=== PATIENT | female | born 1930 | race Caucasian/White ===

== ENCOUNTER 2018-01-17 09:45 | Inpatient (IN) | payer OTHER ==
[~2018-01-17] VITALS: Ht 160 cm; Wt 67.0 kg
[~2018-01-17 09:45] MED LIST: HYDROCODONE-AP1 EAC6 PO; LOSARTAN-HCTZ1 EAC3 PO; METOPROLOL SUCC50 MG PO; OMEPRAZOLE40 MG PO; TRAMADOL 50 MG50 MG PO
[2018-01-17 09:52] VITALS: BP 186/67
[2018-01-17 10:48] LABS: ABSOLUTE BASOPHILS 0.1 thou/uL (0.0-0.2); ABSOLUTE LYMPHOCYTES 1.6 thou/uL (0.8-5.3); ABSOLUTE MONOCYTES 0.5 thou/uL (0.0-1.2); ABSOLUTE NEUTROPHILS 4.6 thou/uL (1.6-8.1); BASOPHILS 0.9 %; EOSINOPHILS 0.4 %; HEMATOCRIT 44.5 % (37.0-47.0); HEMOGLOBIN 14.9 gm/dL (12.0-15.0); LYMPHOCYTES 23.7 %; MCH 30.2 pg (26.0-34.0); MCHC 33.5 g/dL (28.0-37.0); MCV 90.2 fL (80.0-100.0); MONOCYTES 7.3 %; MPV 8.4 fl. (7.2-11.1); NUCLEATED RBCS 0 /100WBC; PLATELET COUNT* 310 thou/uL (150-400); POLYS 67.7 %; RBC 4.93 mil/uL (4.20-5.00); RDW-CV 13.3 % (10.5-14.5); WBC 6.8 thou/uL (4.0-11.0)
[2018-01-17 10:52] LABS: CALCIUM 9.5 mg/dL (8.5-10.1); CREATININE 0.8 mg/dL (0.6-1.3); POTASSIUM 3.6 mmol/L (3.5-5.1)
[2018-01-17 10:56] LABS: ALBUMIN 4.1 g/dL (3.4-5.0); TOTAL BILIRUBIN 0.9 mg/dL (<0.1-1.0); TOTAL PROTEIN 8.3 g/dL (6.4-8.2); URIC ACID* 5.5 mg/dL (2.6-7.2)
[2018-01-17 12:18] LABS: ESR (SEDRATE) 20 mm/hr (0-30)
[2018-01-17 12:33] LABS: URINE BLOOD NEGATIVE (Negative); URINE CLARITY CLEAR; URINE COLOR YELLOW; URINE GLUCOSE-RANDOM NEGATIVE (Negative); URINE KETONES 2+ (Negative); URINE LEUKOCYTES-REFLEX TRACE (Negative); URINE NITRITE-REFLEX NEGATIVE (Negative); URINE PROTEIN NEGATIVE (Negative); URINE UROBILINOGEN 0.2 E.U./dl (0.2-1.0)
[2018-01-17 12:41] LABS: BACTERIA-REFLEX 1-9 Few /HPF (None Seen); CASTS None Seen /LPF (None Seen); ICTOTEST (BILI CONFIRMATORY) Negative (Negative); SQUAMOUS 4-10 Moderate /LPF (0-3); URINE BILIRUBIN 1+ (Negative); URINE RBC None Seen /HPF (0-2); URINE WBC-REFLEX 0-5 Rare /HPF (0-5)
[2018-01-17 12:42] LABS: CRYSTALS None Seen /LPF (None Seen)
[2018-01-17 15:33] VITALS: BP 119/62
[2018-01-17 16:04] VITALS: BP 161/65
[2018-01-17 19:26] VITALS: BP 115/53
[2018-01-18 07:55] VITALS: BP 186/90
[2018-01-18 16:07] VITALS: BP 166/83
[2018-01-19 08:20] VITALS: BP 135/75
[2018-01-19 17:53] VITALS: BP 170/77
[2018-01-19 20:30] VITALS: BP 147/83
[2018-01-20 08:15] VITALS: BP 146/68
[2018-01-20 16:00] VITALS: BP 155/71
[2018-01-20 16:08] LABS: ANA INTERPRETATION Negative (Negative)
--- NOTE | 2018-01-20 19:14 | CON ---
[address] [address] CONSULTATION Name: LOR OLIVIER Room: [address] M.R.#: [id number] Admission: 01/17/18 Attend Phys: Justine Ghosh Discharge: Date of : 31 Report #: [id number] THIS REPORT FOR: //name// CC: Tomy Richardson DATE OF SERVICE: 01/18/2018 HISTORY OF PRESENT ILLNESS: This is an 87-year-old female patient who was evaluated by me for pain in the left lower extremity of about year and a half duration. She indicated it started spontaneously. She is not a very good historian. She was managed at [facility]. She said that they did an MRI of the foot and they diagnosed tendonitis there. They wanted to do the surgery, but she refused the surgery. Then, she started having pain in the left bach area and now she has pain some in the left thigh area. She does not know anything which makes the pain better or worse, but it is a severe pain. It started spontaneously without any trauma. She had an MRI of the lumbar spine. That did show mild abnormality, but that appeared to be on the right side. The patient has no symptom on the right side. REVIEW OF SYSTEMS: Indicate some symptoms suggestive of collagen vascular disorder, but not very prominent. She does have some fractures of the radius in the past. She had a gallbladder surgery. She had a question of Guillain-[place] syndrome in the past. She does not provide any good history. REVIEW OF SYSTEMS: A 14-point review of system was carried out, but otherwise looks unremarkable. She has no associated symptoms of eye, ENT, cardiac, respiratory, GI, , constitutional, dermatological, psychiatric, throat, allergic symptom associated with present symptomatology. PAST MEDICAL HISTORY: Positive for some other joint pain, but not very severe. FAMILY HISTORY: Negative for early age stroke. SOCIAL HISTORY: She does not drink alcohol on a regular basis. PHYSICAL EXAMINATION: Indicate the patient is alert, responsive. Her speech, concentration, fund of knowledge and memory is at her baseline. Cranial nerve examination 2-12 looks unremarkable. Strength, sensation, reflexes and tone looks symmetrical whenever she can give a good effort. There is no cerebellar sign. There is no meningeal sign. There is no carotid bruit. She is moderately-built individual who does not have any dysmorphic features of eyes, ears and face. Blood pressure is 190/89, respirations 16, pulse is 82, temperature is 98.7. Her pulses appear to be palpable. She has no edema, cyanosis or jaundice. Cardiac examinations appear unremarkable[place] [address] CONSULTATION Name: LOR OLIVIER Room: [address] IN ..#: [id number] Admission: 01/17/18 Attend Phys: Justine Ghosh Discharge: Date of : 31 Report #: [id number] difficulty or rhonchi was noticed. LABORATORY DATA: She did have MRI which were reviewed and that is described as well. Her white count is normal at 6.8. Sodium is slightly low at 134. IMPRESSION: The patient's symptom appeared to be secondary to musculoskeletal etiology than radiculopathy. I discussed the patient with Dr. Richardson and we will get an MRI in the location in the bach where the pain is maximum and see if it shows any etiology. We will do some basic collagen vascular workup, although her sed rate appeared to be okay. As an outpatient, she may need an EMG. RECOMMENDATIONS: 1. Await MRI. 2. As an outpatient, she may need an EMG. 3. Do some more blood workup to look for any collagen vascular disorder. Thank you very much for this referral. <ELECTRONICALLY SIGNED> By: Luis Coleman MD 01/20/18 [id number] Coleman MD /nt
[2018-01-20 23:31] VITALS: BP 176/64
[2018-01-21 07:50] VITALS: BP 199/78
[2018-01-21 15:48] VITALS: BP 199/78
[2018-01-21 16:12] VITALS: BP 151/55
[2018-01-21 20:00] VITALS: BP 187/77
[2018-01-22 05:15] LABS: HEMATOCRIT 40.3 % (37.0-47.0); HEMOGLOBIN 13.6 gm/dL (12.0-15.0); MCH 30.7 pg (26.0-34.0); MCHC 33.7 g/dL (28.0-37.0); MCV 91.2 fL (80.0-100.0); MPV 9.5 fl. (7.2-11.1); RBC 4.42 mil/uL (4.20-5.00); RDW-CV 13.3 % (10.5-14.5); WBC 6.1 thou/uL (4.0-11.0)
[2018-01-22 05:39] LABS: ALBUMIN 3.4 g/dL (3.4-5.0); CALCIUM 9.8 mg/dL (8.5-10.1); CREATININE 0.7 mg/dL (0.6-1.3); MAGNESIUM 1.7 mg/dL (1.8-2.4); POTASSIUM 3.2 mmol/L (3.5-5.1); TOTAL BILIRUBIN 0.7 mg/dL (<0.1-1.0); TOTAL PROTEIN 6.5 g/dL (6.4-8.2)
[2018-01-22 08:30] VITALS: BP 199/83
[2018-01-22] MEDS ORDERED: NORCO 5-325 TA1 EACH PO (13:19)
[2018-01-22] MEDS ORDERED: CEFUROXIME250 MG PO (13:21)
[2018-01-22] MEDS ORDERED: MOBIC7.5 MG PO (13:21)
[2018-01-22 13:27] VITALS: BP 199/78
[2018-01-22] MEDS ORDERED: REQUIP 0.25 M0.25 MG PO (14:24)
[2018-01-22 14:58] VITALS: BP 199/78
[2018-02-02] MEDS ORDERED: TRAMADOL 50 MG50 MG PO (13:21)
[2018-02-02] MEDS ORDERED: CEFUROXIME250 MG PO (13:22)
== END 2018-01-22 14:55 | disposition home health service (06) | DRG 554 ==
LOC: M.ERS 09:45 → M.3W 13:17 → M.TBA-ER 13:17 → M.3W 15:40
PROVIDERS: Family Medicine; Nurse Practitioner Family; Psychiatry & Neurology Neuromuscular Medicine; ADMIT Internal Medicine
DX: M17.12 Unilateral primary osteoarthritis, left knee (principal); N39.0 Urinary tract infection, site not specified; G61.0 Guillain-Barre syndrome; M87.88 Other osteonecrosis, other site; M51.16 Intervertebral disc disorders with radiculopathy, lumbar region; M47.816 Spondylosis without myelopathy or radiculopathy, lumbar region; I10 Essential (primary) hypertension; G89.29 Other chronic pain; E86.0 Dehydration; M81.0 Age-related osteoporosis without current pathological fracture; M54.9 Dorsalgia, unspecified; Z90.49 Acquired absence of other specified parts of digestive tract; Z88.8 Allergy status to other drugs, medicaments and biological substances; Z79.899 Other long term (current) drug therapy

== ENCOUNTER → 2018-02-02 | Outpatient (CLI) | payer OTHER ==
[~2018-02-02] MED LIST changes: +CEFUROXIME250 MG PO; +MOBIC7.5 MG PO; +NORCO 5-325 TA1 EACH PO; +OXYCODONE-ACET1 EACH PO; +REQUIP 0.25 M0.25 MG PO
--- NOTE | ~2018-02-02 | PAINCON ---
[address] [address] PAIN MANAGEMENT CONSULTATION Name: LOR OLIVIER [id number] Admission: 02/02/18 Attend Phys: Brett Jacobo MD Discharge: Date of : 31 Report #: [id number] THIS REPORT FOR: //name// CC: Tomy Jacobo DATE OF SERVICE: 02/02/2018 CHIEF COMPLAINT: Pain in the low back and down in my right leg. CHIEF COMPLAINT: Pain in the left leg with numbness and weakness down in my foot. FOLLOWUP HISTORY: The patient is an 87-year-old female who has been referred to the pain clinic for evaluation. The patient has noted for about the last 2 years, she has had some pain and discomfort, which has been problematic. It has become more difficult over the last few months. She has had some swelling in her left knee. States that she did have an injection in this area and noted some benefit from that. Pain has been so problematic. She has gone to the Emergency Room as a result. She has also gone to urgent care 4-5 times. She has tried tramadol and hydrocodone. These medications are slightly helpful, but do not help alleviate her pain. She has been told that she has a cyst behind her left knee. She denies any new trauma. She has used ice on her knee. She has also tried heat. It is significantly impacting her ability to engage in activities of daily living. Rates her pain as an 8-9 at this point. She has tried tramadol. States that the pain can "come on at any time." ALLERGIES: The patient states that she had cortisone in the past -- caused some swelling in her face. Did not have any respiratory problems. Noted primarily the redness in her face. MEDICATIONS: Ceftin 250 mg b.i.d., losartan/hydrochlorothiazide 100/25 mg, metoprolol 50 mg, tramadol 50 mg q. 4 hours p.r.n. 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 PAST SURGICAL HISTORY: Cholecystectomy 1977. SOCIAL HISTORY: She is retired. REVIEW OF SYSTEMS: Questionnaire generally good health, recent weight change, decreased appetite, fevers, night sweats, fatigue, hearing loss, ringing in the ears, loss of appetite, nausea, vomiting, frequent diarrhea, joint pain, joint stiffness, weakness of muscles and joint pain and cramps, muscle pain, difficulty walking, frequent recurring headaches, lightheadedness, depression, [place] [address] PAIN MANAGEMENT CONSULTATION Name: LOR OLIVIER Room: [facility]#: [id number] Admission: 02/02/18 Attend Phys: Brett Jacobo MD Discharge: Date of : 31 Report #: [id number] and insomnia. LABORATORY DATA: MRI of the lumbar spine dated 01/18/2018. 1. L3-L4, there is a digit. There is generalized disk bulge with moderate hypertrophic posterior facet changes and ligamentum hypertrophy. No significant central spinal stenosis. There is mild left-sided neural foraminal narrowing. At L4-L5, there is generalized disk bulge with a 5 mm right paracentral disk protrusion, which abuts the descending right L5 nerve root sleeve. There is mild right-sided neural foraminal narrowing. Severe posterior facet degenerative changes. 2. At L5-S1, no central spinal stenosis or neural foraminal narrowing. PAIN CLINIC ASSESSMENT/PQRS: 1. Osteoarthritis. The patient is complaining of some osteoarthritic changes in her left knee. 2. Rheumatoid arthritis. The patient is not being treated for rheumatoid arthritis. 3. Height 5 feet 3 inches, weight 144 pounds, BMI is 25.6. 4. Vital signs: Blood pressure 141/65, heart rate 47, respiratory rate 18, room air saturation is 98%, temperature 97.9. 5. Pain intensity score 8-9/10. 6. Fall risk. The patient has not fallen in the last 3 months. 7. Blood thinner. The patient is not on a blood thinning medication. 8. Hypertension. The patient is being treated for hypertension. 9. Opioid medications use greater than 6 weeks. The patient is not on a regular opioid medication, but has taken tramadol. 10. Risk assessment tool, low for opioid use. 11. Functional assessment tool, rates pain as a 60/70. 12. Recreational drug use. The patient denies use of recreational drugs. 13. Tobacco: The patient denies use of tobacco at this juncture. 14. Alcohol: The patient denies frequent use of alcoholic beverages. PHYSICAL EXAMINATION: GENERAL: The patient is a well-developed, well-nourished white female. Appears her stated age. She is alert and oriented x 3. Affect is appropriate. Speech is fluent. HEENT: Normocephalic, atraumatic. Extraocular eye muscles intact. Sclerae nonicteric. Mucous membranes are moist. NECK: Without adenopathy or JVD. HEART: Regular rate. S1, S2. LUNGS: Clear to auscultation. ABDOMEN: Nontender. Bowel sounds present. EXTREMITIES: Upper extremity muscle strength is judged to be 5/5 for the major muscle groups in the upper extremity. Lower extremity muscle strength is judged to be 4+ 5 for the left lower extremity. The patient gives way secondary to pain. She walks with an antalgic gait, uses a cane. The [place] [address] PAIN MANAGEMENT CONSULTATION Name: LOR OLIVIER Room: [facility]#: [id number] Admission: 02/02/18 Attend Phys: Brett Jacobo MD Discharge: Date of : 31 Report #: [id number] discomfort in the lateral portion of her leg. Note some swelling in the posterior portion of her knee. Has some numbness in the lateral portion of her leg in the L4-L5 distribution. IMPRESSION: 1. Lumbar radiculopathy, L4-L5 distribution with sensory changes. The patient is walking with a cane secondary to the pain. 2. Hypertension. 3. Chronic back pain. 4. History of Guillain-[place] syndrome, 2006. RECOMMENDATIONS: We discussed treatment options with the patient. We discussed the pathophysiology of her MRI. The patient does have an area of nerve root irritation and paracentral disk protrusion at L4-L5. Does have some pain and discomfort in the posterior portion of her left knee. States that there is some swelling in the left knee. Feels there is some puffiness around the left patellar area. We have discussed the epidural steroid injection reasoning. The patient elects to consider the procedure. She will return to the pain clinic at which time she will undergo an epidural steroid injection. Risk and benefits of the procedure again had been described to the patient. States that she did have some swelling as a result of use of cortisone. Did not have any anaphylactoid type symptomatology per her report. She will return at which time we will consider the possibility of an epidural steroid injection. We would like to thank you for letting us participate in her care. We hope she continues to improve. By: [id number]. Wilner Jacobo MD /nt
== END ==
LOC: M.PC 05:11
DX: M54.16 Radiculopathy, lumbar region (principal); G89.29 Other chronic pain; I10 Essential (primary) hypertension; Z86.69 Personal history of other diseases of the nervous system and sense organs

== ENCOUNTER → 2018-02-09 | Outpatient (CLI) | payer OTHER ==
[~2018-02-09] MED LIST changes: -OXYCODONE-ACET1 EACH PO
--- NOTE | ~2018-02-09 | PAINCON ---
[address] [address] PAIN MANAGEMENT CONSULTATION Name: LOR OLIVIER Room: [facility]#: [id number] Admission: 02/09/18 Attend Phys: Brett Jacobo MD Discharge: Date of : 31 Report #: [id number] THIS REPORT FOR: //name// CC: Tomy Jacobo DATE OF SERVICE: 02/09/2018 PRIMARY CARE PHYSICIAN: Dr. Tomy Swanson. CHIEF COMPLAINT: Pain in the left leg, which is severe. HISTORY: The patient is an 87-year-old female who has been seen in the pain clinic because of pain and discomfort, which is radiating down into her left leg. She describes her pain as quite severe as a 5/10. Notes that she has difficulty in activities of daily living because of this. Notes that the pain can "come on at any time." It does wax and wane. Over the past 2 years things have become more problematic. She has had some swelling in her left knee. Also, has had an injection in that area. She has been seen in the Emergency Room because of the significance of pain. She has tried some pain medications of tramadol, but they still felt significantly alleviate the pain in her leg. She has been told that she has a cyst behind the left knee. Has used ice on her knee. Has also tried heat. ALLERGIES: The patient states that she is allergic to CORTISONE, caused some redness of her face. No respiratory problems. MEDICATIONS: Ceftin 250 mg b.i.d., losartan/hydrochlorothiazide 100/25, metoprolol 50 mg, tramadol 50 mg q.4 hours. PAIN CLINIC ASSESSMENT: 1. Osteoarthritis. The patient is complaining of some osteoarthritic changes in her left knee. 2. Rheumatoid arthritis. The patient is not being treated for rheumatoid arthritis. 3. Height 5 feet 3 inches, weight 143 pounds, BMI is 25.4. 4. Vital signs: Blood pressure 151/82, heart rate 71, respiratory rate 16, room air saturation 95%, temperature 98.1. 5. Pain intensity 08/04. 6. Fall risk. The patient has not fallen in the last 3 months. 7. Blood thinner. The patient is not on a blood thinning medication. 8. Hypertension. The patient is being treated for hypertension. 9. Opioid medications greater than 6 weeks. The patient is using tramadol. 10. Risk assessment too low for opioid use. 11. Functional assessment tool rate 60/70. 12. Recreational drug use. The patient [place] [address] PAIN MANAGEMENT CONSULTATION Name: LOR OLIVIER Room: [facility]#: [id number] Admission: 02/09/18 Attend Phys: Brett Jacobo MD Discharge: Date of : 31 Report #: [id number] 13. Tobacco: The patient denies use of tobacco. 14. Alcohol: The patient denies frequent use of alcoholic beverages. PHYSICAL EXAMINATION: GENERAL: The patient is a well-developed, well-nourished white female. Appears her stated age. She is alert and oriented x 3. Her affect is appropriate. Speech is fluent. Family members present is male. HEENT: Normocephalic, atraumatic. Extraocular eye muscles intact. Sclerae nonicteric. Mucous membranes are moist. NECK: Without adenopathy or JVD. HEART: Regular rate. S1, S2. LUNGS: Clear to auscultation. ABDOMEN: Nontender. Bowel sounds present. EXTREMITIES: Upper extremity muscle strength is judged to be 5-/5 for the major muscle groups in the upper extremity. Lower extremity muscle strength is judged to be 4+/5 for the lower extremities. The patient walks with an antalgic gait. She uses her cane. Complains of pain in the left posterior portion of her left leg in the L4-L5 distribution. The patient perceives some swelling in the posterior portion of her knee. Hard to discern a significant swelling at this juncture. IMPRESSION: 1. Lumbar radiculopathy distribution with sensory changes. 2. The patient walks with a cane secondary to pain. 3. Hypertension. 4. History of Pereyra cyst. 5. Hypertension. 6. Chronic back pain. 7. History of Guillain-[place] syndrome, 2006. RECOMMENDATIONS: We discussed treatment options with the patient. Risks and benefits of an epidural steroid injection were discussed. Possible complications of the procedure were reviewed. They could include but are not limited to infection, increased muscle soreness, headache, bleeding, worsening of pain, no improvement in pain, paralysis. The patient elects to proceed. PROCEDURE NOTE: The patient was taken to the procedure area. She was assisted in getting on the examination table. She was placed in the prone position. A pillow was placed under her abdomen to bolster improve positioning. Her back was sterilely prepped with a Betadine solution. At the L4-L5 interspace, 0.25% bupivacaine was infiltrated. A 17-gauge Tuohy with loss of resistance technique was used to gain access to the epidural space. There was no CSF, heme or paresthesia. A total of 80 mg Depo-Medrol, 40 mg triamcinolone and 2 mL of 0.25% bupivacaine was injected. The patient tolerated the procedure well. She remained in the Pain Clinic for an appropriate amount of time. A total of 16 seconds fluoroscopy time was used. The patient [place] [address] PAIN MANAGEMENT CONSULTATION Name: LOR OLIVIER Room: [facility]#: [id number] Admission: 02/09/18 Attend Phys: Brett Jacobo MD Discharge: Date of : 31 Report #: [id number] in the near future. We would like to thank you for letting us participate in her care. We hope she continues to improve. By: [id number]. Wilner Jacobo MD /MANJU
== END | disposition home or self-care (01) ==
LOC: M.PC 05:41
DX: M54.16 Radiculopathy, lumbar region (principal); G89.29 Other chronic pain; I10 Essential (primary) hypertension; Z87.39 Personal history of other diseases of the musculoskeletal system and connective tissue; Z86.69 Personal history of other diseases of the nervous system and sense organs; Z79.899 Other long term (current) drug therapy; Z88.8 Allergy status to other drugs, medicaments and biological substances; Z79.891 Long term (current) use of opiate analgesic; Z87.440 Personal history of urinary (tract) infections

== ENCOUNTER → 2018-02-21 | Outpatient (CLI) | payer OTHER ==
[~2018-02-21] MED LIST changes: +OXYCODONE-ACET1 EACH PO
--- NOTE | ~2018-02-21 | PAINCON ---
[address] [address] PAIN MANAGEMENT CONSULTATION Name: LOR OLIVIER Room: [facility]#: [id number] Admission: 02/21/18 Attend Phys: Brett Jacobo MD Discharge: Date of : 31 Report #: [id number] THIS REPORT FOR: //name// CC: Tomy Jacobo DATE OF SERVICE: 02/21/2018 CHIEF COMPLAINT: Here for renewal of medication. FOLLOWUP HISTORY: The patient is an 87-year-old female who has been seen in the pain clinic because of chronic pain radiating down into her left leg. She has undergone epidural steroid injections. She notes that those have been beneficial. At this juncture, she continues to have pain, which is quite problematic. She rates it at a 5/10. It involves her left leg. Noticed about 4 days of pain resolution, then noted on reoccurrence of pain. Since that time, her pain has been more problematic. As you may recall, she is hospitalized because of this. She states that she has been evaluated for possibility of a blood clot. States that she has been told of the possibility that she has a cyst "Pereyra's" behind her knee. The patient has found that tramadol is helpful, but only works for a short amount of time. She did not have any significant swelling with the epidural steroid injection. She does complain of some redness of her face in the past. ALLERGIES: THE PATIENT STATES THAT SHE HAS AN ALLERGIC REACTION TO CORTISONE WHICH CAUSED SOME REDNESS IN HER FACE WITHOUT RESPIRATORY PROBLEMS -- THE PATIENT DID NOT EXPERIENCE ANY REAL PROBLEMS WITH THE DEPO-MEDROL INJECTIONS, WHICH SHE RECEIVED AT HER LAST VISIT. MEDICATIONS: Ceftin 250 mg b.i.d., losartan/hydrochlorothiazide 100/25, metoprolol 50 mg, tramadol 50 mg every 4 hours. PAIN CLINIC ASSESSMENT/OSTEOARTHRITIS: 1. The patient has some osteoarthritic changes in her knee, but is not being treated for rheumatoid arthritis. 2. Height 5 feet 3 inches, weight 141 pounds, BMI is 25. 3. Vital signs: Blood pressure 146/86, heart rate 61, respiratory rate 18, room air saturation 93%, temperature 98.4. 4. Pain intensity 10. 5. Fall risk. The patient has not fallen in the last 3 months. 6. Blood thinner. The patient is not on a blood thinning medication. 7. Hypertension. The patient is being treated for hypertension. 8. Opioid therapy greater than 6 weeks. The patient is using tramadol medication. 9. Risk assessment for opioid low. 10. Functional assessment tool 60/70. [place] [address] PAIN MANAGEMENT CONSULTATION Name: LOR OLIVIER Room: [facility]#: [id number] Admission: 02/21/18 Attend Phys: Brett Jacobo MD Discharge: Date of : 31 Report #: [id number] 11. Recreational drug use. The patient denies use of recreational drugs. 12. Tobacco: The patient denies use of tobacco. 13. Alcohol: The patient denies frequent use of alcoholic beverages. PHYSICAL EXAMINATION: GENERAL: The patient is a well-developed, well-nourished white female. Appears her stated age. She is alert and oriented x3. Affect is appropriate. Speech is fluent. Family member, her daughter is present. HEAD, EYES, EARS, NOSE, AND THROAT: Normocephalic, atraumatic. Extraocular eye muscles intact. Sclerae nonicteric. Mucous membranes are moist. NECK: Without adenopathy or JVD. HEART: Regular rate. S1, S2. LUNGS: Clear to auscultation. ABDOMEN: Nontender. Bowel sounds present. EXTREMITIES: Upper extremity muscle strength 5- for the major muscle groups in the upper extremity. Lower extremity, the patient has some pain and discomfort in the lower extremities, particularly the left area. Strength 4+/5 in lower extremity. The patient has walks with an antalgic gait. Uses her cane. Complains of some pain and discomfort in the posterior portion of her leg. I cannot really appreciate a bulging, which would be consistent with a symptomatic Pereyra cyst. She complains of some pain radiates from her leg down from the knee down and there is no significant swelling in the left side versus the right side. IMPRESSION: 1. Lumbar radicular pain with sensory changes. 2. Chronic pain, which has been recalcitrant to current medical regimen. 3. Hypertension. 4. History of Pereyra cyst per the patient's report. 5. Hypertension. 6. Chronic back pain. 7. History of Guillain-[place] syndrome. RECOMMENDATIONS: We discussed treatment options with the patient. At this juncture, we will have the patient take a more powerful/potent analgesics. The patient will try hydrocodone 5 mg 1 p.o. q.i.d. p.r.n. pain. A total of 75 tablets have been written. The patient's pain is somewhat of an enigma. Possibility of an epidural injection in the future still present. We would like to thank you for letting us to participate in her care. We hope she continues to improve. By: [id number]. MD DEJUAN Parker
== END ==
LOC: M.PC 04:56
DX: M54.16 Radiculopathy, lumbar region (principal); G89.29 Other chronic pain; M71.22 Synovial cyst of popliteal space [Baker], left knee; I10 Essential (primary) hypertension; Z86.69 Personal history of other diseases of the nervous system and sense organs; Z79.899 Other long term (current) drug therapy

== ENCOUNTER → 2018-03-14 | Outpatient (CLI) | payer OTHER | END | disposition home or self-care (01) | LOC: M.PC 04:42 | DX: M54.16 Radiculopathy, lumbar region (principal); M54.5 Low back pain; Z88.8 Allergy status to other drugs, medicaments and biological substances; Z79.899 Other long term (current) drug therapy ==

== ENCOUNTER → 2018-04-20 | Outpatient (CLI) | payer OTHER ==
--- NOTE | ~2018-04-20 | PAINCON ---
[address] [address] PAIN MANAGEMENT CONSULTATION Name: LOR OLIVIER [id number] Admission: 04/20/18 Attend Phys: Brett Jacobo MD Discharge: Date of : 31 Report #: [id number] THIS REPORT FOR: //name// CC: Tomy Jacobo DATE OF SERVICE: 04/20/2018 CHIEF COMPLAINT: Pain has been going pretty well, but then it started up. I am having trouble sleeping at night because of the pain down into my leg on the right side. HISTORY: The patient is an 87-year-old female who has been followed in the pain clinic. As you recall, she suffers from pain involving her left leg. She has been experiencing pain in the L4-L5 dermatomal distribution. She has undergone epidural steroid injections and gleaned benefits from these. She is doing reasonably well, but noted a recurrence of pain and discomfort, which is quite problematic. She is having difficulty sleeping because of the pain. Radiates down into her ankle and below the knee on the left side. States that she is able to sleep, but oftentimes awakened at 3:00 a.m. in the morning because of the pain. She has been unable to return to sleep. She has had no complication from the last injections. Did use oxycodone tablets in the past, found that they were beneficial. When her pain recurred a week or so ago, she did not have any oxycodone medication. Notes that her pain was quite severe. ALLERGIES: The patient states she has some allergic reaction to cortisone. Has noted some redness in her face. The patient has had injections in the epidural space with Depo-Medrol and triamcinolone without any adverse reactions. PAIN CLINIC ASSESSMENT/PQRS: 1. The patient is being treated for osteoarthritic changes in her knee. She is not being treated for rheumatoid arthritis. 2. Height 5 feet 3 inches, weight 141 pounds, BMI is 25. 3. Vital signs: Blood pressure 147/67, heart rate 58, respiratory rate 16, room air saturation 98%, temperature 98.1. 4. Pain intensity can rise to 5/10. 5. Fall risk. The patient has not fallen in the last 3 months. 6. Blood thinner. The patient is not on a blood thinning medication. 7. Hypertension. The patient is being treated for hypertension. 8. Opiate greater than 6 weeks. The patient has been using tramadol, found that the oxycodone was more efficacious. 9. Functional assessment tool 60/70. 10. Recreational drug use. The patient denies use of recreational drugs. 11. Tobacco: The patient denies use of tobacco. 12. Alcohol: The patient [place] [address] PAIN MANAGEMENT CONSULTATION Name: LOR OLIVIER Room: [facility]#: [id number] Admission: 04/20/18 Attend Phys: Brett Jacobo MD Discharge: Date of : 31 Report #: [id number] PHYSICAL EXAMINATION: GENERAL: The patient is a well-developed, well-nourished white female, appears her stated age. She is alert and oriented x 3. Her daughter is present. HEENT: Normocephalic, atraumatic. Extraocular eye muscles intact. Sclerae nonicteric. Mucous membranes are moist. NECK: Without adenopathy or JVD. HEART: Regular rate. S1, S2. LUNGS: Clear to auscultation without rhonchi or rales. ABDOMEN: Nontender. Bowel sounds present. EXTREMITIES: Upper extremity muscle strength is judged to be 5-/5 for the major muscle groups. The patient has some pain and discomfort, which is radiating down into her left leg in the L4-L5 dermatomal distribution. Muscle strength in this area is 4+/5. The patient walks using an antalgic gait. Does use a cane. Has pain in the left area below the knee and down to the dorsum ____ and side of her foot in the L4-L5 distribution. IMPRESSION: 1. Lumbar radicular pain in the L4-L5 distribution with sensory changes. 2. Chronic pain that has been recalcitrant to medical management. 3. Hypertension. 4. 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 5. Hypertension. 6. Chronic back pain. 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 RECOMMENDATIONS: We discussed treatment options with the patient and her daughter. Risks and benefits of an epidural steroid injection were again discussed. Possible complications of the procedure were reviewed. They include but are not limited to infection, worsening pain, no improvement in pain, nerve trauma with paralysis. The patient elects to proceed. PROCEDURE NOTE: The patient was assisted in getting on the examination table. Her back was sterilely prepped with a Betadine solution. A 0.25% bupivacaine was used to infiltrate the area at the L4-L5 interspace on the left. The midline area was infiltrated and localized. A 17-gauge Tuohy with loss of resistance technique was used to gain access to the epidural space. A left paraspinal approach was undertaken. The patient tolerated the procedure well. There were no complications. Total of 80 mg Depo-Medrol, 40 mg triamcinolone and 2 mL of 0.25% bupivacaine was injected. The patient tolerated the procedure well. She was then taken to the recovery room where she remained for an appropriate amount of time. She will call us if she should need. The patient has been given a script for Percocet 5 mg 1 p.o. q.i.d. as needed. By: [id number]. Wilner Jacobo MD /nt
== END | disposition home or self-care (01) ==
LOC: M.PC 12:30
DX: M54.16 Radiculopathy, lumbar region (principal); G89.29 Other chronic pain; I10 Essential (primary) hypertension; Z98.890 Other specified postprocedural states; Z86.69 Personal history of other diseases of the nervous system and sense organs; Z88.8 Allergy status to other drugs, medicaments and biological substances; Z79.899 Other long term (current) drug therapy; Z79.891 Long term (current) use of opiate analgesic

== ENCOUNTER → 2018-08-08 | Outpatient (CLI) | payer OTHER ==
[~2018-08-08] MED LIST changes: +MEDROLDOSEPACK PO
--- NOTE | 2018-08-24 01:32 | PAINCON ---
[address] [address] PAIN MANAGEMENT CONSULTATION Name: LOR OLIVIER Room: [facility]#: [id number] Admission: 08/08/18 Attend Phys: Brett Jacobo MD Discharge: Date of : 31 Report #: [id number] THIS REPORT FOR: //name// CC: Tomy Jacobo DATE OF SERVICE: 08/08/2018 CHIEF COMPLAINT: Left knee and low back pain. HISTORY: The patient is an 87-year-old female who has been followed in the Pain Clinic. She suffers from pain and discomfort in her left leg. She also has been experiencing some pain in her back. She notes that the pain is 6/10. She has noticed some edema in her left knee area. She has been experiencing pain, which has been radiating down into the left calf and into the anterior portion of her foot. She had pain in the L4-L5 distribution. She has noticed recurrence of that pain as well. It is most problematic in the evenings. She has been using oxycodone and tramadol to help combat the pain. ALLERGIES: THE PATIENT STATES THAT SHE HAD SOME PROBLEM WITH CORTISONE IN THE PAST. She underwent epidural steroid injections without any problems using Depo-Medrol and triamcinolone. PAIN CLINIC ASSESSMENT/PQRS: 1. The patient is being treated for osteoarthritis involving her knee. She is not being treated for rheumatoid arthritis. 2. Height 5 feet 3 inches, weight 148 pounds, BMI is 26. 3. Vital signs: Blood pressure 152/112, heart rate 54, respiratory rate 16, room air saturation 94%, temperature 98.2. 4. Pain intensity: 6/10. 5. Fall history: The patient has not fallen in the last 3 months. 6. Blood thinner: The patient is not on a blood thinning medication. 7. Hypertension: The patient is being treated for hypertension. 8. Opioids greater than 6 weeks: The patient uses tramadol and finds oxycodone beneficial as well. 9. Functional assessment tool: 60/70. 10. Recreational drug use: The patient denies use of recreational drugs. 11. Tobacco: The patient denies use of tobacco. 12. Alcohol: The patient denies use of alcoholic beverages. PHYSICAL EXAMINATION: GENERAL: The patient is a well-developed, well-nourished white female. She appears her stated age. She is alert and oriented x 3. Her affect is appropriate. Speech is fluent. NECK: Without adenopathy or JVD. HEART: Regular rate. S1 [place] [address] PAIN MANAGEMENT CONSULTATION Name: OLIVIERLOR Shukla Room: [facility]#: [id number] Admission: 08/08/18 Attend Phys: Brett Jacobo MD Discharge: Date of : 31 Report #: [id number] LUNGS: Clear to auscultation without rales or rhonchi. ABDOMEN: Nontender. Bowel sounds present. MUSCULOSKELETAL: Upper extremity muscle strength judged to be 5-/5 for the major muscle groups in the upper extremity. The patient has pain and discomfort in the lower portion of her back. She has had pain in the L4-L5 dermatomal distribution. The patient's muscle strength in the lower extremity is 4+/5. She walks with an antalgic gait. She is using a cane. She notes that there is pain in her left knee in the dorsum of it. She also has some pain radiating down into her left calf and involving the anterior portion of her foot. She notes that the pain improves with use of her medication as well as rest. IMPRESSION: 1. Lumbar radicular pain L4-L5 distribution with sensory changes. 2. Chronic pain. 3. Hypertension. 4. History of Pereyra's cyst in the posterior portion of her left leg and knee. 5. Chronic back pain. 6. History of Guillain-[place] syndrome. RECOMMENDATIONS: We discussed treatment options with the patient. The patient continues to have some swelling involving her left knee. She also has some pain in the back area. I think at this point we will have the patient try Medrol Dosepak. She will also continue with oxycodone 5 mg one p.o. t.i.d. or q.i.d. p.r.n. as necessary. A total of 75 tablets have been provided. The patient will also try tramadol in the interim 1 p.o. t.i.d. If her pain persists, we will consider an epidural steroid injection. We would like to thank you for letting us participate in her care. We hope she continues to improve. <ELECTRONICALLY SIGNED> By: Brett Jacobo MD 08/24/18 0132 [id number]. Wilner Jacobo MD /tommie
== END ==
LOC: M.PC 07:15
DX: M54.16 Radiculopathy, lumbar region (principal); G89.29 Other chronic pain; I10 Essential (primary) hypertension; M71.22 Synovial cyst of popliteal space [Baker], left knee; Z86.69 Personal history of other diseases of the nervous system and sense organs

== ENCOUNTER → 2019-05-31 | Outpatient (CLI) | payer OTHER ==
[~2019-05-31] VITALS: Ht 160 cm; Wt 64.9 kg
[2019-05-31 12:26] LABS: ABSOLUTE BASOPHILS 0.1 thou/uL (0.0-0.2); ABSOLUTE EOSINOPHILS 0.1 thou/uL (0.0-0.7); ABSOLUTE LYMPHOCYTES 2.4 thou/uL (0.8-5.3); ABSOLUTE MONOCYTES 0.6 thou/uL (0.0-1.2); ABSOLUTE NEUTROPHILS 5.5 thou/uL (1.6-8.1); BASOPHILS 0.6 %; EOSINOPHILS 1.2 %; HEMATOCRIT 41.8 % (37.0-47.0); HEMOGLOBIN 14.4 gm/dL (12.0-15.0); LYMPHOCYTES 27.8 %; MCH 31.3 pg (26.0-34.0); MCHC 34.4 g/dL (28.0-37.0); MPV 8.3 fl. (7.2-11.1); NUCLEATED RBCS 0 /100WBC; PLATELET COUNT* 287 thou/uL (150-400); POLYS 63.4 %; RBC 4.59 mil/uL (4.20-5.00); RDW-CV 13.5 % (10.5-14.5); WBC 8.7 thou/uL (4.0-11.0)
[2019-05-31 12:41] LABS: ALBUMIN 3.9 g/dL (3.4-5.0); CALCIUM 9.5 mg/dL (8.5-10.1); CREATININE 0.7 mg/dL (0.6-1.3); POTASSIUM 4.2 mmol/L (3.5-5.1); TOTAL PROTEIN 8.2 g/dL (6.4-8.2)
[2019-05-31 13:40] VITALS: BP 216/74
--- NOTE | 2019-06-22 08:28 | PAINCON ---
[address] [address] PAIN MANAGEMENT CONSULTATION Name: LOR OLIVIER Room: [facility].#: [id number] Admission: 05/31/19 Attend Phys: Brett Jacobo MD Discharge: Date of : 31 Report #: [id number] THIS REPORT FOR: //name// cc: Tomy Swanson Michael G DO ~ THIS REPORT FOR: //name// CC: Tomy Jung DATE OF SERVICE: 05/31/2019 CHIEF COMPLAINT: Left knee and back pain. HISTORY OF PRESENT ILLNESS: The patient is an 88-year-old female who has been seen in the Pain Clinic because of chronic back pain. She also has left knee pain, which is problematic. She has undergone epidural steroid injections in the past. She notes that at night, her pain has become quite problematic. She has come with a desire to undergo an epidural steroid injection. She rates her pain as a 1/10 at this juncture, but it continues to be quite problematic as the day progresses. It involves both legs and radiates down into both legs. Pain is worse on the left. Pain radiates all the way down into her feet. She has used tramadol. She has run out of that medication. She also has used Rombauer in the past. She has tried ibuprofen, but that has not been very efficacious. Walking and pain at night are the most problematic conditions. ALLERGIES: The patient states that she has had SOME PROBLEMS WITH CORTISONE in the past. She has undergone epidural steroid injections with triamcinolone and Depo-Medrol without problem. PAIN CLINIC ASSESSMENT AND PQRS: 1. The patient is being treated for osteoarthritis involving her knees. She is not being treated for rheumatoid arthritis. 2. Height 5 feet 3 inches, weight 145 pounds, BMI is 25. 3. Vital Signs: Blood pressure 162/68, heart rate 71, respiratory rate 18, room air saturation is 95%, and temperature is 98.3. 4. Pain intensity 04/06. 5. Fall history: The patient has not fallen in the last 3 months. 6. Blood thinner. The patient is not on a blood thinning medication. 7. Hypertension. The patient is being treated for hypertension. 8. Opioids greater than 6 weeks. The patient uses tramadol and finds oxycodone beneficial. 9. Functional assessment tool . 10. Recreational drug use: The patient denies. 11. Tobacco: The patient [place] [address] PAIN MANAGEMENT CONSULTATION Name: LOR OLIVIER Room: [facility]#: [id number] Admission: 05/31/19 Attend Phys: Brett Jacobo MD Discharge: Date of : 31 Report #: [id number] 12. Alcohol. The patient denies use of alcoholic beverages. PHYSICAL EXAMINATION: GENERAL: The patient is a well-developed, well-nourished white female. Appears her stated age. She is alert and oriented x 3. Her affect is appropriate. Speech is fluent. HEENT: Normocephalic, atraumatic. Extraocular eye muscles intact. Sclerae nonicteric. Mucous membranes are moist. NECK: Without adenopathy or JVD. HEART: Regular rate. LUNGS: Clear to auscultation without rhonchi. ABDOMEN: Nontender. MUSCULOSKELETAL: The patient without significant scoliosis, kyphosis, or lordosis. The patient has pain and discomfort in the low back area at L4-5. We discussed the benefits. She walks with a cane. Pain is radiating down into her calf to the level of her feet. IMPRESSION: 1. Lumbar radiculopathy, L4-5 distribution with sensory changes. 2. Chronic pain. 3. Hypertension. 4. History of Pereyra cyst in the posterior portion of her left leg and knee. 5. Chronic back pain. 6. History of Guillain-[place] syndrome. RECOMMENDATIONS: We discussed treatment options with the patient. Risks and benefits of an epidural steroid injection were discussed. Possible complications of the procedure were reviewed. They include but are not limited to infection, worsening of pain, no improvement in pain, bleeding. PROCEDURE: The patient was then assisted in the procedure area. She was helped on to the examination table. Her back was sterilely prepped with a Betadine solution at L4-5. A 0.25% bupivacaine was infiltrated in this area to anesthetize the area. A 17-gauge Tuohy with loss of resistance technique was then used to gain access to the epidural space. There was no CSF, heme or paresthesia. Total of 80 mg Depo-Medrol, 40 mg triamcinolone and 2 mL of 0.25% bupivacaine were injected. The patient tolerated the procedure well. She remained in the Pain Clinic for an appropriate amount of time. She was then taken to the Recovery Room. In the Recovery Room, she was noted to have blood pressures in the 212 to 104 range. This was found to be the case on numerous occasions. She was then taken to the Emergency Room in a wheelchair for evaluation. We explained to the patient the seriousness of her blood pressure being this high. She agreed. We would like to thank you for letting us participate in her care. We hope she [address] [place] [address] PAIN MANAGEMENT CONSULTATION Name: LOR OLIVIER Room: [facility]#: [id number] Admission: 05/31/19 Attend Phys: Brett Jacobo MD Discharge: Date of : 31 Report #: [id number] continues to improve. The patient was provided with oxycodone 5 mg 1 p.o. q.i.d., a total of 75 pills to take in the interim. <ELECTRONICALLY SIGNED> By: Brett Jacobo MD 06/22/19 0828 0101 0124N. Wilner Jacobo MD /nt
== END ==
LOC: M.PC 09:50 → M.ERS 09:59 → M.PC 09:59
PROVIDERS: Emergency Medicine
DX: M54.16 Radiculopathy, lumbar region (principal); G89.29 Other chronic pain; I10 Essential (primary) hypertension; Z98.890 Other specified postprocedural states; Z88.8 Allergy status to other drugs, medicaments and biological substances; Z79.899 Other long term (current) drug therapy

== ENCOUNTER → 2020-07-08 | Outpatient (CLI) | payer OTHER ==
[~2020-07-08] MED LIST changes: +ENDOCET 5-3251 EACH PO; +PRILOSEC OTC20 MG PO; +ZESTRIL40 MG PO
== END ==
LOC: M.PC 08:33
PROVIDERS: ATTEND Anesthesiology Pain Medicine
DX: M54.16 Radiculopathy, lumbar region (principal); I10 Essential (primary) hypertension; M79.604 Pain in right leg; M79.605 Pain in left leg

== ENCOUNTER 2020-07-09 18:33 | Emergency (ER) | payer OTHER ==
[~2020-07-09] VITALS: Ht 160 cm; Wt 68.0 kg
[2020-07-09 19:30] LABS: ABSOLUTE BASOPHILS 0.1 thou/uL (0.0-0.2); ABSOLUTE EOSINOPHILS 0.2 thou/uL (0.0-0.7); ABSOLUTE MONOCYTES 0.6 thou/uL (0.0-1.2); ABSOLUTE NEUTROPHILS 3.5 thou/uL (1.6-8.1); EOSINOPHILS 2.8 %; HEMATOCRIT 41.9 % (37.0-47.0); HEMOGLOBIN 13.9 gm/dL (12.0-15.0); LYMPHOCYTES 40.9 %; MCHC 33.2 g/dL (28.0-37.0); MCV 93.6 fL (80.0-100.0); MONOCYTES 8.2 %; MPV 8.2 fl. (7.2-11.1); NUCLEATED RBCS 0 /100WBC; PLATELET COUNT* 284 thou/uL (150-400); POLYS 47.1 %; RBC 4.48 mil/uL (4.20-5.00); RDW-CV 13.1 % (10.5-14.5); WBC 7.4 thou/uL (4.0-11.0)
[2020-07-09 19:43] LABS: CALCIUM 9.3 mg/dL (8.5-10.1); CREATININE 0.9 mg/dL (0.6-1.3); POTASSIUM 4.2 mmol/L (3.5-5.1)
[2020-07-09 19:49] LABS: PROTIME 10.3 Seconds (9.20-11.50)
[2020-07-09 19:55] LABS: CK-MB MASS 1.9 ng/mL (<0.5-3.6); MAGNESIUM 2.1 mg/dL (1.8-2.4); TOTAL BILIRUBIN 0.6 mg/dL (<0.1-1.0); TOTAL PROTEIN 8.5 g/dL (6.4-8.2)
[2020-07-09 21:45] VITALS: BP 158/87
--- NOTE | 2020-07-10 10:27 | EKG ---
[place] [address] ELECTROCARDIOGRAM REPORT Name: LOR OLIVIER Room: [facility]#: [id number] Admission: 07/09/20 Attend Phys: Discharge: 07/09/20 Date of : 31 Date of Service: 07/09/20 1903 Report #: [id number] THIS REPORT FOR: //name// [facility] ED Test Date: 2020-07-09 Test Time: 19:03:56 Pat Name: LOR OLIVIER Department: Room: Gender: Superintendent Nonselling: MIS : 1930 Requested By: Conrad Paulson Order Number: [id number] MD: Roger Andre Measurements Intervals Davis Rate: 54 P: 82 NC: 169 QRS: -5 QRSD: 101 T: 61 QT: 505 QTc: 479 Interpretive Statements Sinus bradycardia Borderline T wave abnormalities Compared to ECG 02/18/2017 14:27:55 Atrial premature complex(es) no longer present Electronically Signed On 07-10-2020 10:26:53 CDT by Roger Andre [email or web address] <ELECTRONICALLY SIGNED> By: Roger Andre MD, FAC 07/10/20 1026 1903 1903 Roger Andre MD, [facility] /EPI
== END 2020-07-09 21:45 | disposition home or self-care (01) ==
LOC: M.ERS 18:33
PROVIDERS: Family Medicine
DX: I16.0 Hypertensive urgency (principal); Z98.890 Other specified postprocedural states; Z90.89 Acquired absence of other organs; Z79.899 Other long term (current) drug therapy; Z88.8 Allergy status to other drugs, medicaments and biological substances; Z88.1 Allergy status to other antibiotic agents; Z87.891 Personal history of nicotine dependence

== ENCOUNTER → 2020-10-28 | Outpatient (CLI) | payer OTHER | LOC: M.PC 08:26 | PROVIDERS: ATTEND Anesthesiology Pain Medicine | DX: M54.16 Radiculopathy, lumbar region (principal); G61.0 Guillain-Barre syndrome; Z79.891 Long term (current) use of opiate analgesic; Z79.899 Other long term (current) drug therapy ==

== ENCOUNTER → 2021-05-21 | Outpatient (CLI) | payer OTHER ==
[~2021-05-21] MED LIST changes: +CARVEDILOL25 MG PO; +CHLORTHALIDONE25 MG PO; +NORVASC5 MG PO; +PERCOCET 5-3251 EACH PO
== END ==
LOC: M.PC 05-14 08:30
PROVIDERS: ATTEND Anesthesiology Pain Medicine
DX: M54.16 Radiculopathy, lumbar region (principal); M79.604 Pain in right leg; M79.605 Pain in left leg; Z88.8 Allergy status to other drugs, medicaments and biological substances